=== PATIENT | male | born 1950 | race Hispanic/Latino ===

== ENCOUNTER 2017-08-14 01:45 | Inpatient (IN) | payer MEDICARE ==
[2017-08-14 01:45] VITALS: BMI 26.6
[2017-08-14 01:54] VITALS: O2SAT 98
--- NOTE | 2017-08-14 01:57 | ED PDOC ---
Psych Transfer Clearance - Clearance Statement Clearance Statement: Reviewed vital signs, lab results and transfer papers. Patient clinically stable for psychiatric admission.
[2017-08-14] MEDS ORDERED: Alum-Mag Hydrox-Simethicone Susp (30 mL) PO PRN (02:22)
[2017-08-14] MEDS ORDERED: Bismuth Subsalicylate 262 mg/15 ml Sus (240 ml) PO PRN (02:22)
[2017-08-14] MEDS ORDERED: Magnesium Hydroxide Susp 30 ml UD PO PRN (02:22)
--- NOTE | 2017-08-14 02:40 | PCM.BM ---
<Rajendra Moran - Last Filed: 08/14/17 02:38> Treatment Plan Problems - Problems identified on initial assessmt Medication nonadherence Date Initiated: 08/14/17 Time Initiated: 02:39 Assessment reference: NA Status: Active Altered Sleep Patterns Date Initiated: 08/14/17 Time Initiated: 02:40 Assessment reference: NA Status: Active Treatment assets and liabiliti Patient Assests: cooperative, ADL independent, negotiates basic needs Patient Liabilities: live alone, financial problems, poor support system, substance abuse - Milieu Protocol Maintain good personal hygiene: every shift Encourage regular showers, every shift Remind patient to perform daily oral care, every shift Assist patient to perform ADL's Maintain personal safety: daily Educate patient to report safety concerns to staff, daily Monitor environment for contraband/sharps Medication safety: Monitor for expected outcome, potential side effects: daily, Assess barriers to learning: daily, Assess readiness for medication education: daily <Nelsy Webster - Last Filed: 08/14/17 10:15> - Diagnosis (1) Schizophrenia Status: Acute Interventions: Medication management, Individual and group therapy, Psychoeducation 08/14/17 10:15 (2) Depression Status: Acute Interventions: Medication management, Individual and group therapy, Psychoeducation 08/14/17 10:16 <Zaynab Melo - Last Filed: 08/15/17 11:37> Family Contact Family involvement: No known Family/SO - Goals for Treatment Patient goals for treatment: Pt to be encouraged to attend activity and clinical groups 3-5x per week to identify at least 2 contributing factors to depression. Psycho-education to be provided to patient/family regarding benefits of medications and treatment adherence. Pt to be encouraged to participate in group milieu to develop effective coping skills to reduce depression and free of suicide ideation. Coordinate discharge resource needs by providing referral for psychiatric treatment follow up in the community. Discharge/Continuing Care - Education Needs Education Needs: Patient Medication, Patient Diagnosis/Disease Process, Patient Coping Skills, Patient Placement options, Patient Community resources, Patient Health Practices/Safety, Patient Personal Hygiene/Grooming, Patient Aftercare Safety Plan - Discharge Discharge Criteria: Normal sleep pattern, Ability to care for self, Reduction of target symptoms Discharge to:: Home - Additional Comments 08/15/17 11:33 Pt seen and discussed in team meeting. Reason for admission reviewed. Pt's progress and bx on the unit reviewed and discussed. Pt reported feeling "not good." Pt reported feeling "depressed, I'm in pain, I'm weak." Pt reported he feels as if he has no energy. Pt's social and medical issues reviewed. Pt reported having an infection and back pain from coughing. Pt's medical complaints addressed by treating psychiatrist present int he meeting. Pt's medications reviewed. Treatment plan reviewed and pt is agreeable. [facility] discussed after care plan, referral to PHP. Pt is agreeable to PHP at the present time. [facility] will continue ti follow case. - Treatment Team Participation Discussed with Family/SO: No Was Patient/Family/SO present at Treatment Team Meeting: Yes
[2017-08-14 06:30] LABS: IRON 95 ug/dL (49-181)
[2017-08-14 06:44] LABS: T4 5.87 ug/dl (5.5-11.0)
[2017-08-14 06:53] LABS: THYROID STIMULATING HORMONE 1.88 mIU/ML (0.46-4.68)
[2017-08-14] MEDS ORDERED: Pneumococcal 23-Valent Vaccine IM ONE (09:09)
[2017-08-14] MEDS ORDERED: Influenza Vaccine 18yr & older 0.5 ML/45 MCG SYR IM ONE (09:12)
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
--- NOTE | 2017-08-14 14:54 | CP.PCM.CON ---
History of Present Illness - History of Present Illness History of Present Illness: CC: "Not feeling well" This is a 67 year old male with a past medical history of schizophrenia and depression, who presented to the ED after stating that he was not feeling well. He reported feeling depressed and helpless. He was subsequently admitted to the inpatient psychiatric unit for further care. Upon examination of the patient, he admits to pain and burning on urination as well as frequency. This has been going on for "at least several weeks". He also complains of upper respiratory congestion and cough. He did recieve a chest X ray in the Ed which shows no active disease. Laboratory results show unremarkable results other than decreased B12. His urinalysis is unremarkable. Patient denies chest pain, shortness of breath, fevers, chills, nausea, vomiting, diarrhea, headache. Rest of ROS as below. All of the patient's questions were answered at the bedside. Review of Systems - Hematologic/Lymphatic Additional comments: GENERAL/CONSTITUTIONAL: The patient denies fever, fatigue, weakness, weight gain or weight loss. HEAD, EYES, EARS, NOSE AND THROAT: Eyes - The patient denies pain, redness, loss of vision, double or blurred vision, flashing lights or spots, dryness, Ears, nose, mouth and throat. The patient denies ringing in the ears, loss of hearing, nosebleeds, loss of sense of smell, dry sinuses, sinusitis, post nasal drip, CARDIOVASCULAR: The patient denies chest pain, chest pressure, or irregular heartbeats, RESPIRATORY: The patient admits to cough and congestion, occasional sputum production. Some wheezing. He denies chronic dry cough, coughing up blood, shortness of breath. GASTROINTESTINAL: The patient denies decreased appetite, nausea, vomiting, vomiting blood or coffee ground material, heartburn, regurgitation, diarrhea, constipation, gas, blood in the stools, black tarry stools. GENITOURINARY: The patient admits to burning with urination and spasm, denies blood in the urine, frequency, or urgency MUSCULOSKELETAL: The patient denies arm, buttock, thigh or calf cramps. No joint or muscle pain. No muscle weakness or tenderness. No joint swelling, neck pain, back pain. SKIN: The patient denies easy bruising, skin redness, skin rash, hives, sensitivity to sun exposure, tightness, nodules or bumps, hair loss, color changes in the hands or feet with cold. NEUROLOGIC: The patient denies headache, dizziness, fainting, muscle spasm, loss of consciousness, sensitivity or pain in the hands and feet or memory loss. PSYCHIATRIC: The patient denies anxiety, depression, or thoughts of suicide. ENDOCRINE: The patient denies intolerance to hot or cold temperature, flushing, fingernail changes, increased thirst, or increased salt intake HEMATOLOGIC/LYMPHATIC: The patient denies anemia, bleeding tendency or clotting tendency. ALLERGIC/IMMUNOLOGIC: The patient denies rhinitis, asthma, skin sensitivity, latex allergies or sensitivity. Past Patient History - Past Social History Smoking Status: Heavy Smoker > 10 Cigarettes Daily - CARDIAC Hx Cardiac Disorders: No Hx Hypertension: No - PULMONARY Hx Chronic Obstructive Pulmonary Disease (COPD): Yes (?) - NEUROLOGICAL HX Cerebrovascular Accident: No Hx Seizures: No - HEMATOLOGICAL/ONCOLOGICAL Hx Cancer: No Hx Human Immunodeficiency Virus (HIV): No - MUSCULOSKELETAL/RHEUMATOLOGICAL Hx Falls: No - GENITOURINARY/GYNECOLOGICAL Hx Sexually Transmitted Disorders: No - PSYCHIATRIC Hx Depression: Yes Hx Substance Use: Yes (cocoaine, marijuana 07/14/17) - SURGICAL HISTORY Hx Surgeries: No - ANESTHESIA Hx Anesthesia: No Meds Allergies/Adverse Reactions: Allergies Allergy/AdvReac Type Severity Reaction Status Date / Time No Known Allergies Allergy Verified 08/13/17 17:22 - Medications Medications: Current Medications Acetaminophen (Tylenol 325mg Tab) 650 mg PO Q4 PRN PRN Reason: Pain, moderate (4-7) Al Hydrox/Mg Hydrox/Simethicone (Maalox Plus 30 Ml) 30 ml PO Q4 PRN PRN Reason: Dyspepsia Bismuth Subsalicylate (Pepto-Bismol) 524 mg PO Q4 PRN PRN Reason: Diarrhea Cyanocobalamin (Vitamin B12 1000 Mcg Tab) 1,000 mcg PO DAILY NUUN Fluphenazine HCl (Prolixin) 5 mg PO HS NUNU Guaifenesin (Robitussin) 200 mg PO Q6 PRN PRN Reason: Cough and congestion Hydroxyzine Pamoate (Vistaril) 25 mg PO TID PRN PRN Reason: Bladder Spasm Imipramine HCl (Tofranil) 50 mg PO HS NUNU Lorazepam (Ativan) 0.5 mg PO HS PRN PRN Reason: Insomnia Stop: 08/28/17 02:23 Last Admin: 08/14/17 03:46 Dose: 0.5 mg Lorazepam (Ativan) 0.5 mg PO Q6 PRN PRN Reason: Anixety/Agitation Stop: 08/28/17 02:23 Magnesium Hydroxide (Milk Of Magnesia) 30 ml PO HS PRN PRN Reason: Constipation Nicotine (Nicoderm Cq) 1 patch TD DAILY NUNU Results - Vital Signs Recent Vital Signs: Last Vital Signs Temp 97.9 F 08/14/17 06:00 Pulse 66 08/14/17 06:00 Resp 19 08/14/17 06:00 BP 146/84 08/14/17 06:00 Pulse Ox 98 08/14/17 01:52 - Labs Labs: Laboratory Results - last 24 hr 08/14/17 08/14/17 08/14/17 05:30 05:30 05:30 Hemoglobin A1c 5.7 Iron TIBC % Saturation Ferritin 30.2 Triglycerides 110 Cholesterol 160 LDL Cholesterol Direct 85 HDL Cholesterol 46 Vitamin B12 230 L Free T4 0.70 L Thyroxine (T4) 5.87 TSH 3rd Generation 1.88 08/14/17 05:30 Hemoglobin A1c Iron 95 TIBC 314 % Saturation 30 Ferritin Triglycerides Cholesterol LDL Cholesterol Direct HDL Cholesterol Vitamin B12 Free T4 Thyroxine (T4) TSH 3rd Generation
[2017-08-14] MEDS: guaiFENesin 200 mg/10 ml Syrup UD PO PRN (17:20)
[2017-08-14 17:45] LABS: FOLATE 7.7 ng/mL
[2017-08-15] MEDS: guaiFENesin 200 mg/10 ml Syrup UD PO PRN ×2 (01:03→08:48)
--- NOTE | 2017-08-15 08:46 | PCM.PYCHPN ---
Psychiatric Progress Note - Psychiatric Progress Note Patient seen today, length of contact: Patient evaluated, case discussed with team, chart reviewed Patient Chief Complaint: "I'm still depressed." Problems Identified/Issues Discussed: Patient reports feeling depressed. He also reports that he feels "paranoid" but was unable to explain what the means, he did state that he is worried about his housing and doesn't trust his roommate. We discussed that we would titrate his medications back to the previous doses which he states he was stable on for several months. He denies current adverse effects to medications. Denies AH/VH/ SI/HI. Medication Change: No Medical Record Reviewed: Yes Consults ordered or reviewed: Medicine consult appreciated: Mr. Restrepo is a 67 year old male with pmh of schizophrenia, depression, long standing smoker, admitted to the inpatient psychiatric unit 1) Schizophrenia/depression - Management as per psychiatric jose eduardo 2) Dysuria - Urinalysis negative on admission - Will check G&C PCR RNA to determine if he may have urethritis - Start Vistaril 25 mg po TID PRN for bladder spasms 3) upper respiratory infection with cough, congestion - CXR negative - Start Robitussin PRN for cough and congestion - Monitor vitals daily - Denies shortness of breath Mental Status Examination - Cognitive Function Orientation: Person, Place, Situation, Time Memory: Intact Attention: WNL Association: WNL Fund of Knowledge: WNL - Mood Mood: Depressed - Affect Affect: Constricted, Depressed - Formal Thought Process Formal Thought Process: Paranoia (Vague paranoia) Psychotic Thoughts and Behaviors: NO AH/VH - Suicidal Ideation Suicidal Ideation: No - Homicidal Ideation Homicidal Ideation: No Goal/Treatment Plan - Goal/Treatment Plan Need for Continued Stay: Remain at risks for inpatient hospitalization, Severe depression anxiety, Discharge may exacerbated symptoms Progress Toward Problem(s) and Goals/Treatment Plan: Schizophrenia, Depressive Disorder -Individual and group therapy -Prolixin 5 mg PO HS, will increase tomorrow -Imipramine 50 mg PO HS, will increase tomorow -Monitor for EPS, will restart Cogentin if clinically indicated; patient denies current EPS -Medicine consult appreciated -Dietitian referral -Disposition planning Estimated Date of D/C: 08/20/17 - Smoking Cessation Smoking Cessation Initiated: Yes
[2017-08-16] MEDS: guaiFENesin 200 mg/10 ml Syrup UD PO PRN ×2 (06:19→21:04)
--- NOTE | 2017-08-16 09:49 | PCM.PYCHPN ---
Psychiatric Progress Note - Psychiatric Progress Note Patient seen today, length of contact: Patient evaluated, case discussed with team, chart reviewed Patient Chief Complaint: "I'm still depressed." Problems Identified/Issues Discussed: Patient reports that he continues to feel depressed and paranoia "about people. " He thinks people may be playing tricks on him. We discussed continued titration of his medications. NO AH/VH/SI/HI. No adverse effects to medications reported. Medication Change: Yes (Increase Prolixin and Imipramine) Medical Record Reviewed: Yes Consults ordered or reviewed: Medicine consult appreciated: Mr. Restrepo is a 67 year old male with pmh of schizophrenia, depression, long standing smoker, admitted to the inpatient psychiatric unit 1) Schizophrenia/depression - Management as per psychiatric jose eduardo 2) Dysuria - Urinalysis negative on admission - Will check G&C PCR RNA to determine if he may have urethritis - Start Vistaril 25 mg po TID PRN for bladder spasms 3) upper respiratory infection with cough, congestion - CXR negative - Start Robitussin PRN for cough and congestion - Monitor vitals daily - Denies shortness of breath Mental Status Examination - Cognitive Function Orientation: Person, Place, Situation, Time Memory: Intact Attention: WNL Association: WNL Fund of Knowledge: WN Decription of patient's judgement and insights: Fair I/J; chronic poor I/J re: cocaine abuse - Mood Mood: Depressed - Affect Affect: Constricted, Depressed - Formal Thought Process Formal Thought Process: Paranoia (Vague paranoia) Psychotic Thoughts and Behaviors: NO AH/VH - Suicidal Ideation Suicidal Ideation: No - Homicidal Ideation Homicidal Ideation: No Goal/Treatment Plan - Goal/Treatment Plan Need for Continued Stay: Remain at risks for inpatient hospitalization, Severe depression anxiety, Discharge may exacerbated symptoms Progress Toward Problem(s) and Goals/Treatment Plan: Schizophrenia, Depressive Disorder; patient needs continued hospitalization for treatment and safety -Individual and group therapy -Increase Prolixin to 10 mg PO HS -Increase Imipramine to 100 mg PO HS -Monitor for EPS, will restart Cogentin if clinically indicated; patient denies current EPS -Medicine consult appreciated -Dietitian consult appreciated -Disposition planning Estimated Date of D/C: 08/20/17 - Smoking Cessation Smoking Cessation Initiated: Yes
--- NOTE | 2017-08-17 11:30 | PCM.PYCHPN ---
Psychiatric Progress Note - Psychiatric Progress Note Patient seen today, length of contact: Patient evaluated, case discussed with team, chart reviewed Patient Chief Complaint: "I'm okay." Problems Identified/Issues Discussed: Patient reports that he continues to feel depressed, but states that his mood is improving. He denies acute AH/VH. He is brighter and more engaged in the community. NO AH/VH/SI/HI. No adverse effects to medications reported. Medication Change: No Medical Record Reviewed: Yes Consults ordered or reviewed: Medicine consult appreciated: Mr. Restrepo is a 67 year old male with pmh of schizophrenia, depression, long standing smoker, admitted to the inpatient psychiatric unit 1) Schizophrenia/depression - Management as per psychiatric jose eduardo 2) Dysuria - Urinalysis negative on admission - Will check G&C PCR RNA to determine if he may have urethritis - Start Vistaril 25 mg po TID PRN for bladder spasms 3) upper respiratory infection with cough, congestion - CXR negative - Start Robitussin PRN for cough and congestion - Monitor vitals daily - Denies shortness of breath Mental Status Examination - Cognitive Function Orientation: Person, Place, Situation, Time Memory: Intact Attention: WNL Association: [facility] Fund of Knowledge: [facility] Decription of patient's judgement and insights: Fair I/J; chronic poor I/J re: cocaine abuse - Mood Mood: Depressed - Affect Affect: Constricted, Depressed - Formal Thought Process Formal Thought Process: Paranoia (Vague paranoia) Psychotic Thoughts and Behaviors: NO AH/VH - Suicidal Ideation Suicidal Ideation: No - Homicidal Ideation Homicidal Ideation: No Goal/Treatment Plan - Goal/Treatment Plan Need for Continued Stay: Remain at risks for inpatient hospitalization, Severe depression anxiety, Discharge may exacerbated symptoms Progress Toward Problem(s) and Goals/Treatment Plan: Schizophrenia, Depressive Disorder -Individual and group therapy -Continue Prolixin 10 mg PO HS -Continue Imipramine 100 mg PO HS -Monitor for EPS, will restart Cogentin if clinically indicated; patient denies current EPS -Medicine consult appreciated -Dietitian consult appreciated -Disposition planning- if patient continues to improve over the weekend, will likely discharge on Sunday Estimated Date of D/C: 08/20/17
[2017-08-17] MEDS: guaiFENesin 200 mg/10 ml Syrup UD PO PRN (16:31)
[2017-08-18] MEDS: guaiFENesin 200 mg/10 ml Syrup UD PO PRN ×2 (08:40→14:25)
--- NOTE | 2017-08-18 12:11 | PCM.PYCHPN ---
Psychiatric Progress Note - Psychiatric Progress Note Patient seen today, length of contact: Patient evaluated, case discussed with team, chart reviewed Patient Chief Complaint: pt has remained less depressed and less anxious with mood being improving with no side effects. DSM 5 Symptoms Update: depression. Medication Change: No Medical Record Reviewed: Yes Mental Status Examination - Cognitive Function Orientation: Person, Place, Situation, Time Memory: Intact Attention: WNL Association: WNL Fund of Knowledge: WNL - Mood Mood: Depressed - Affect Affect: Constricted, Depressed - Formal Thought Process Formal Thought Process: Paranoia (Vague paranoia) - Suicidal Ideation Suicidal Ideation: No - Homicidal Ideation Homicidal Ideation: No Goal/Treatment Plan - Goal/Treatment Plan Need for Continued Stay: Remain at risks for inpatient hospitalization, Severe depression anxiety, Discharge may exacerbated symptoms Progress Toward Problem(s) and Goals/Treatment Plan: will continue to stabilize the pt adjusting meds and engage pt in therapy. Disposition as per dr vásquez Estimated Date of D/C: 08/20/17
--- NOTE | 2017-08-19 13:43 | PCM.PYCHPN ---
Psychiatric Progress Note - Psychiatric Progress Note Patient seen today, length of contact: Patient evaluated, case discussed with team, chart reviewed Patient Chief Complaint: pt has remained less depressed and less anxious with mood being improving with no side effects. Medication Change: No Medical Record Reviewed: Yes Mental Status Examination - Cognitive Function Orientation: Person, Place, Situation, Time Memory: Intact Attention: WNL Association: WN Fund of Knowledge: WNL - Mood Mood: Depressed - Affect Affect: Constricted, Depressed - Formal Thought Process Formal Thought Process: Paranoia (Vague paranoia) - Suicidal Ideation Suicidal Ideation: No - Homicidal Ideation Homicidal Ideation: No Goal/Treatment Plan - Goal/Treatment Plan Need for Continued Stay: Remain at risks for inpatient hospitalization, Severe depression anxiety, Discharge may exacerbated symptoms Progress Toward Problem(s) and Goals/Treatment Plan: will continue to stabilize the pt adjusting meds and engage pt in therapy. Disposition as per dr vásquez Estimated Date of D/C: 08/20/17
[2017-08-19] MEDS: guaiFENesin 200 mg/10 ml Syrup UD PO PRN ×2 (15:57→21:10)
[2017-08-20 05:49] VITALS: BP 139/88; PULSE 69; RESP 19; TEMP 97.1
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
[2017-08-20] MEDS: guaiFENesin 200 mg/10 ml Syrup UD PO PRN (11:42)
== END 2017-08-20 13:30 | disposition home or self-care (01) | DRG 885 ==
LOC: H.ER 01:45 → H.STEP 01:56
PROVIDERS: ADMIT Psychiatry & Neurology Psychiatry; ATTEND Psychiatry & Neurology Psychiatry
PROC: 3E0234Z Introduction of Serum, Toxoid and Vaccine into Muscle, Percutaneous Approach (ICD-10-PCS; principal; 2017-08-14)
PROC: HZ56ZZZ Individual Psychotherapy for Substance Abuse Treatment, Psychoeducation (ICD-10-PCS; 2017-08-14)
PROC: GZHZZZZ Group Psychotherapy (ICD-10-PCS; 2017-08-14)
DX: F20.9 Schizophrenia, unspecified (principal); F14.90 Cocaine use, unspecified, uncomplicated; F17.210 Nicotine dependence, cigarettes, uncomplicated; F32.9 Major depressive disorder, single episode, unspecified; N32.89 Other specified disorders of bladder; J06.9 Acute upper respiratory infection, unspecified; R30.0 Dysuria; Z23 Encounter for immunization

== ENCOUNTER 2017-08-26 23:03 | Emergency (ER) | payer MEDICARE ==
[2017-08-26 23:05] VITALS: BP 120/88; PULSE 75; RESP 16; TEMP 97.2; O2SAT 98; BMI 28.3
--- NOTE | 2017-08-26 23:31 | ED PDOC ---
HPI: Psych/Substance Abuse Time Seen by Provider: 08/26/17 23:05 Chief Complaint (Nursing): Psychiatric Evaluation Chief Complaint (Provider): Crisis History Per: Patient Additional Complaint(s): 67 year old male, PMH of Depression and Schizophrenia, presents to ED requesting his psych medications. Pt states he is unable to refill prescribed medications due to financial hardship. Denies SI, HI, or any active physical complaints at this time. Past Medical History Reviewed: Nursing Documentation, Vital Signs Vital Signs: Last Vital Signs Temp 97.2 F L 08/26/17 23:04 Pulse 75 08/26/17 23:04 Resp 16 08/26/17 23:04 BP 120/88 08/26/17 23:04 Pulse Ox 98 08/26/17 23:04 - Medical History PMH: COPD (?), Depression, Schizophrenia Denies: Diabetes, Hepatitis, HIV, HTN, Seizures, Sexually Transmitted Disease - Family History Family History: States: Unknown Family Hx - Social History Current smoker - smoking cessation education provided: Yes Alcohol: Social Drugs: Cannabis, Cocaine - Immunization History Hx Tetanus Toxoid Vaccination: No Hx Influenza Vaccination: No Hx Pneumococcal Vaccination: No - Home Medications Home Medications: Ambulatory Orders Medication Instructions Recorded Cyanocobalamin [Vitamin B12 1000 1,000 mcg PO DAILY #30 tab 08/20/17 mcg Tab] Imipramine Pamoate 100 mg PO HS #30 capsule 08/20/17 Nicotine 21 mg/24 hr [Nicoderm Cq] 1 patch TD DAILY #30 patch 08/20/17 fluPHENAZine [Prolixin] 10 mg PO HS #30 tab 08/20/17 hydrOXYzine Pamoate [Vistaril] 25 mg PO TID PRN #60 cap 08/20/17 - Allergies Allergies/Adverse Reactions: Allergies Allergy/AdvReac Type Severity Reaction Status Date / Time No Known Allergies Allergy Verified 08/26/17 23:09 Review of Systems ROS Statement: Except As Marked, All Systems Reviewed And Found Negative Physical Exam - Reviewed Nursing Documentation Reviewed: Yes Vital Signs Reviewed: Yes - Physical Exam Appears: Positive for: Well, Non-toxic, No Acute Distress Head Exam: Positive for: ATRAUMATIC, NORMAL INSPECTION, NORMOCEPHALIC Skin: Positive for: Normal Color, Warm, DRY Eye Exam: Positive for: EOMI, Normal appearance, PERRL ENT: Positive for: Normal ENT Inspection Neck: Positive for: Normal, Painless ROM Cardiovascular/Chest: Positive for: Regular Rate, Rhythm Respiratory: Positive for: CNT, Normal Breath Sounds Gastrointestinal/Abdominal: Positive for: Normal Exam, Bowel Sounds, Soft Back: Positive for: Normal Inspection Extremity: Positive for: Normal ROM Neurologic/Psych: Positive for: Alert, Oriented - ECG O2 Sat by Pulse Oximetry: 98 Medical Decision Making Medical Decision Making: Pt underwent crisis eval, see notes. stable for discharge Disposition - Clinical Impression Clinical Impression: Depression - Patient ED Disposition Is Patient to be Admitted: No - Disposition Disposition: Routine/Home Disposition Time: 00:18 Condition: GOOD Instructions: Depression (ED) Forms: [employer] ([place])
== END 2017-08-27 00:23 | disposition home or self-care (01) ==
LOC: H.ER 23:03
DX: F32.9 Major depressive disorder, single episode, unspecified (principal); F17.200 Nicotine dependence, unspecified, uncomplicated; F20.9 Schizophrenia, unspecified